=== PATIENT | female | born 2000 | race Two or more races ===

== ENCOUNTER 2024-12-23 23:49 | Emergency (ER) | payer MEDICAID, SELFPAY ==
[2024-12-23 23:50] VITALS: BMI 34.7
[2024-12-24 00:03] VITALS: BP 134/89; PULSE 90; RESP 20; TEMP 37; O2SAT 98
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
[2024-12-24 01:27] LABS: HCG Qualitative,Urine Negative
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
== END 2024-12-24 02:24 | disposition home or self-care (01) ==
PROVIDERS: Nurse Practitioner Family; Emergency Provider Emergency Medicine
DX: S09.90XA Unspecified injury of head, initial encounter (principal); S80.12XA Contusion of left lower leg, initial encounter; S80.11XA Contusion of right lower leg, initial encounter; V49.40XA Driver injured in collision with unspecified motor vehicles in traffic accident, initial encounter; Y92.410 Unspecified street and highway as the place of occurrence of the external cause
CPT/HCPCS: 70450; 73590; 81025; 99283

== ENCOUNTER 2024-12-25 21:08 | Emergency (ER) | payer MEDICAID, SELFPAY ==
[2024-12-25 21:10] VITALS: BP 113/80; PULSE 97; RESP 18; TEMP 36.9; O2SAT 97
[2024-12-25 21:11] VITALS: BMI 34.7
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
== END 2024-12-25 23:58 | disposition home or self-care (01) ==
PROVIDERS: Emergency Provider Emergency Medicine
DX: S43.401A Unspecified sprain of right shoulder joint, initial encounter (principal); S13.4XXA Sprain of ligaments of cervical spine, initial encounter; S23.3XXA Sprain of ligaments of thoracic spine, initial encounter; S23.41XA Sprain of ribs, initial encounter; V89.2XXA Person injured in unspecified motor-vehicle accident, traffic, initial encounter
CPT/HCPCS: 71110; 72040; 72072; 73020; 81025; 99283